=== PATIENT | female | born 1945 | race Caucasian/White ===

== ENCOUNTER → 2016-12-09 | Outpatient (CLI) | payer MEDICARE, OTHER ==
[~2016-12-09] MED LIST: ANTI-DIARRHEAL2 M1 PO; ASPIRIN81 M2 PO; CARVEDILOL6.25 MG PO; COLESTID PO; FENOFIBRATE160 MG PO; IMDUR-ER30 M3 PO; JANUMET 50-1,1 UDTAB PO; JANUMET XR 1001 EACH PO; JANUMET XR 50-1 EAC1 PO; LOMOTIL WHITE2.5 M1 PO; PLAVIX PO; RANEXA500 MG PO; SIMVASTATIN20 MG PO; VALSARTAN-HCTZ1 EAC1 PO
--- NOTE | ~2016-12-09 | CT4 ---
[facility] A Service of [facility] / [facility] RADIOLOGY TEXT RESULTS PATIENT: TATIANA QUEEN LOCATION: [facility] : 47 UNIT #: [id number] AGE: [address]: Tori Odom MD SEX: F ORDER DR: [id number] [facility] [address] [place], [place] [address] [id number] O MR#: [id number] Acc #: [id number] NAME: TATIANA QUEEN. : 1945 SEX: F STUDY DATE/TIME: 12/09/2016 12:36 UNIT: [facility]AT ROOM: STUDY DESCRIPTION: CT Abd and Pelv Wo Cont Attending Physician: Tori Odom M.D. Referring Physician: Tori Odom M.D. Ordering Physician: Tori Odom M.D. Primary Care Physician: Tori Odom M.D. MEDICAL IMAGING REPORT This report is preliminary unless electronic signature is present EXAM CT abdomen and pelvis INDICATIONS Right upper quadrant abdominal pain radiating to the back for [address] of the abdomen and pelvis without contrast. IV contrast was not administered due to the patient's underlying renal insufficiency. GFR 43. Coronal and sagittal reconstructions were obtained. The CT exam was performed with one or more of the following radiation dose reduction techniques: automatic exposure control, adjustment of mA and/or kV according to patient size, and iterative reconstruction. COMPARISON CT abdomen and pelvis 08/29/2015. FINDINGS Abdomen: Noncontrast evaluation of the liver, pancreas, spleen, and adrenal glands are within normal limits. The gallbladder surgically absent. There is mild renal cortical atrophy. No hydronephrosis. No urinary calculi. The bowel is not dilated. The appendix is normal. No enlarged retroperitoneal or mesenteric lymph nodes. The abdominal aorta is normal in caliber. [facility] A Service of [facility] / [facility] RADIOLOGY TEXT RESULTS PATIENT: TATIANA QUEEN LOCATION: [facility] : 47 UNIT #: [id number] AGE: [address]: Tori Odom MD SEX: F ORDER DR: Pelvis: No pelvic mass. No enlarged pelvic or inguinal lymph nodes. Ovaries are normal in appearance. The uterus is surgically absent. No acute osseous abnormalities. IMPRESSION 1. No acute findings in the abdomen or pelvis to account for the patient's symptoms. 2. Mild renal atrophy. No hydronephrosis. Dictated by... Tyrell Young M.D. THIS IS AN ELECTRONICALLY VERIFIED REPORT Tyrell Young M.D. at 12/10/2016 9:53 AM SACHI/zane TD: 12/09/2016 13:37 JOB #: [id number] MEDICAL IMAGING REPORT Page 1 of 1 COPY
[2016-12-09 12:21] LABS: POC - CREATININE 1.3 mg/dL (0.44-1.03)
== END | disposition home or self-care (01) ==
LOC: CCAT 11:18
PROVIDERS: Internal Medicine
DX: R10.811 Right upper quadrant abdominal tenderness (principal); N26.1 Atrophy of kidney (terminal)
CPT/HCPCS: 74176; 82565

== ENCOUNTER → 2016-12-11 | Outpatient (CLI) | payer MEDICARE, OTHER ==
--- NOTE | ~2016-12-11 | EKG ---
PATIENT: TATIANA QUEEN UNIT #: [id number] Ventricular Rate: 68 BPM Atrial Rate: 68 BPM P-R Interval: 150 ms QRS Duration: 82 ms Q-T Interval: 378 ms QTC Calculation(Bezet): 401 ms P [place]: 74 degrees Calculated R [place]: 59 degrees Calculated T [place]: 66 degrees Diagnosis Line: Normal sinus rhythm Diagnosis Line: Normal ECG Diagnosis Line: Diagnosis Line: Confirmed by RONAL GOODWIN MD ([id number]) on Diagnosis Line: 12/12/2016 6:43:42 AM INTERPRETING JUANCARLOS JETT
[2016-12-11 08:17] LABS: HEMATOCRIT 38.3 % (35.0-45.0); HEMOGLOBIN 12.5 gm/dL (12.0-16.0); MEAN CELL VOLUME 84.5 FL (83-96); MEAN CORPUSCULAR HEMOGLOBIN 27.6 PG (28-34); MEAN CORPUSCULAR HGB CONC 32.6 g/dL (30-36); RED BLOOD COUNT 4.53 X10e (3.90-5.30); RED CELL DISTRIBUTION WIDTH 14.7 % (11.0-15.5); WHITE BLOOD COUNT 7.7 X10e3 (4.0-10.5)
[2016-12-11 08:36] LABS: PARTIAL THROMBOPLASTIN TIME 25.8 SECONDS (23.5-31.3)
[2016-12-11 09:04] LABS: BUN/CREATININE RATIO 18.33; CALCIUM SERUM 9.5 mg/dL (8.4-10.2); CREATININE SERUM 1.2 mg/dL (0.6-1.4); GLOM FILT RATE Estimated 45.8 mL/min (>60); POTASSIUM 4.5 mmol/L (3.5-5.1)
== END | disposition home or self-care (01) ==
LOC: CCVL 07:39
PROVIDERS: Internal Medicine Cardiovascular Disease
DX: I25.110 Atherosclerotic heart disease of native coronary artery with unstable angina pectoris (principal); Z95.5 Presence of coronary angioplasty implant and graft; I25.2 Old myocardial infarction; E11.9 Type 2 diabetes mellitus without complications; I10 Essential (primary) hypertension; Z88.5 Allergy status to narcotic agent; M17.10 Unilateral primary osteoarthritis, unspecified knee; Z79.82 Long term (current) use of aspirin; Z82.49 Family history of ischemic heart disease and other diseases of the circulatory system; Z83.42 Family history of familial hypercholesterolemia; Z83.3 Family history of diabetes mellitus; Z87.19 Personal history of other diseases of the digestive system; Z80.3 Family history of malignant neoplasm of breast; Z80.0 Family history of malignant neoplasm of digestive organs
CPT/HCPCS: 36415; 80048; 85027; 85610; 85730; 93005; C1769; C1887; C1894; J1644; J2250; J3010

== ENCOUNTER → 2016-12-25 | Outpatient (CLI) | payer MEDICARE, OTHER ==
[2016-12-25 15:07] LABS: BUN/CREATININE RATIO 17.14; CALCIUM SERUM 8.9 mg/dL (8.4-10.2); CREATININE SERUM 1.4 mg/dL (0.6-1.4); POTASSIUM 3.9 mmol/L (3.5-5.1)
== END | disposition home or self-care (01) ==
LOC: CLAB 14:04
PROVIDERS: Internal Medicine Cardiovascular Disease
DX: R94.4 Abnormal results of kidney function studies (principal)
CPT/HCPCS: 36415; 80048